=== PATIENT | female | born 1985 | race Asian ===

== ENCOUNTER 2025-04-07 08:21 | Emergency (ER) | payer SELFPAY ==
[~2025-04-07] VITALS: Ht 157.5 cm; Wt 66.0 kg
[2025-04-07 08:27] VITALS: TEMP 98.6; O2SAT 100
[2025-04-07 09:15] VITALS: BP 122/83; PULSE 75; RESP 18
[2025-04-07] MEDS: ACETAMINOPHEN 325MG TABLET PO ONE (09:15)
[2025-04-07] MEDS: OLANZAPINE 5MG TABLET PO STA (09:15)
[2025-04-07] MEDS: KETOROLAC 15MG/ML VIAL IM ONE (09:15)
[2025-04-07 09:18] LABS: BASOPHILS % 0.7 % (0.0-2.0); EOSINOPHILS % 1.7 % (0.0-5.0); HEMATOCRIT. 43.3 % (36.0-48.0); HEMOGLOBIN. 14.7 g/dL (12.0-16.0); LYMPHOCYTES % 23.4 % (20.0-50.0); MEAN PLATELET VOLUME 8.1 fl (7.4-10.4); MONOCYTES % 8.7 % (2.0-8.0); NEUTROPHILS % 65.5 % (40.0-76.0); PLATELET 115 x1000/uL (130-400); RED BLOOD CELL COUNT 4.66 mill/uL (4.2-5.4); RED CELL DISTRIBUTION WIDTH 15.5 % (11.6-14.6)
[2025-04-07 09:40] LABS: CREATININE 0.8 mg/dL (0.6-1.0); PROTEIN TOTAL 7.3 g/dL (6.0-8.3); UREA NITROGEN BLOOD 8 mg/dL (9-23)
[2025-04-07 09:41] LABS: ASPARTATE AMINOTRANSFERASE 45 IU/L (<34)
[2025-04-07 09:42] LABS: BILIRUBIN DIRECT 1.4 mg/dL (<=3.0); BILIRUBIN TOTAL 4.2 mg/dL (0.1-1.0)
[2025-04-07 09:51] LABS: INFLUENZA TYPE A Presumptive Negative (Pres. Neg.)
[2025-04-07 09:52] LABS: INFLUENZA TYPE B Presumptive Negative (Pres. Neg.)
[2025-04-07 09:53] LABS: RESPIRATORY SYNCYTIAL VIRUS Not Detected (Not Detectd)
== END 2025-04-07 10:39 | disposition home or self-care (01) ==
LOC: ER 08:21
DX: R51.9 Headache, unspecified (principal); R11.0 Nausea; R07.9 Chest pain, unspecified; Z20.822 Contact with and (suspected) exposure to COVID-19
CPT/HCPCS: 80076; 80048; 81025; 85025; 87420; 87804 ×2; 36415; 96372; 99283; 87426; J1885; Z7610